=== PATIENT | male | born 1970 | race Hispanic/Latino ===

== ENCOUNTER 2018-11-15 12:03 | Inpatient (IN) | payer MEDICAID ==
[~2018-11-15] VITALS: Ht 175.3 cm; Wt 104.6 kg
[2018-11-15] MEDS ORDERED: NITROGLYCERIN 5 MG/ML 10 ML VIAL IV ONE (16:36)
[2018-11-15] MEDS ORDERED: IOHEXOL-350 75 ML VIAL IV ONE (16:36)
[2018-11-15] MEDS ORDERED: IOHEXOL-350 50ML VIAL IV ONE (16:36)
[2018-11-15] MEDS ORDERED: HEPARIN SODIUM 1000UNIT/ML 10ML VIAL ONE (16:36)
[2018-11-15] MEDS ORDERED: SODIUM BICARB 50MEQ 50ML VIAL ONE (16:36)
[2018-11-15] MEDS ORDERED: LIDOCAINE HCL 2% 20ML ONE (16:36)
[2018-11-15] MEDS ORDERED: ONDANSETRON HCL 4 MG/2 ML VIAL IVP PRN (17:15)
[2018-11-15] MEDS ORDERED: ALPRAZOLAM 1 MG TAB PO PRN (17:15)
[2018-11-15] MEDS ORDERED: ACETAMINOPHEN 325 MG TAB PO PRN (17:15)
[2018-11-15] MEDS ORDERED: DEXTROSE 50%-WATER 50 ML DISP.SYRIN IV PRN (17:15)
[2018-11-15] MEDS ORDERED: GLUCAGON 1MG KIT 1 MG ML IM PRN (17:15)
[2018-11-15] MEDS ORDERED: ZOLPIDEM TARTRATE 5 MG TAB PO PRN (17:30)
[2018-11-15 17:45] VITALS: BP 127/68
--- NOTE | 2018-11-15 17:57 | NUR ---
ARRIVAL TO FLOOR PT IS AAOX3 DENIES CP DENIES SOB DENIES NV AT THIS TIME, ARRIVED WITH ORDERS. PLAN R/LHC IN AM WITH DR HANSON. ISA KERN AWARE.
[2018-11-15] MEDS ORDERED: ASPI-1197 PO (18:08)
[2018-11-15] MEDS ORDERED: LEVO75TA4 PO (18:08)
[2018-11-15] MEDS ORDERED: METO100T14 PO (18:08)
[2018-11-15] MEDS ORDERED: ESOM40CA PO (18:08)
[2018-11-15] MEDS ORDERED: OXYC30TA89 PO (18:08)
[2018-11-15] MEDS ORDERED: METF-446 PO (18:08)
[2018-11-15] MEDS ORDERED: TORS20TA4 PO ×2 (18:08)
[2018-11-15] MEDS ORDERED: METO50TA18 PO (18:08)
[2018-11-15] MEDS: FUROSEMIDE 10 MG/ML 4ML VIAL IV SCH (18:12)
[2018-11-15] MEDS ORDERED: PHARMACY COMMUNICATION MISC SCH (18:15)
--- NOTE | 2018-11-15 18:15 | NUR ---
NUPUR BRONSON AWARE OF ADMISSION
--- NOTE | 2018-11-15 18:26 | NUR ---
REGARDING SCHEDULED OXYCODONE STATES HE WANTS TO TAKE IT LATER TONIGHT
[2018-11-15] MEDS: OXYCODONE HCL 30 MG TABLET PO SCH (19:00)
--- NOTE | 2018-11-15 19:30 | NUR ---
REFUSED OXYCODONE DOSE SCHEDULED.
--- NOTE | 2018-11-15 19:55 | NUR ---
STATES HE FEELS SHORT OF BREATH AND FEELS LIKE HE NEEDS A BIT MORE OXYGEN. INCRERASED O2 TO 3L NC AND WILL CONTINUE TO MONITOR. APPEARS COMFORTABLE. O2 SAT 97%.
[2018-11-15 20:00] VITALS: BP 139/69
[2018-11-15] MEDS ORDERED: ATORVASTATIN CALCIUM 40 MG TABLET PO SCH (21:00)
[2018-11-15] MEDS: INSULIN HUMULIN R 100 UNIT/ML 3ML SQ SCH (21:00)
[2018-11-16] VITALS (7 sets, daily range): BP systolic 110–140; BP diastolic 58–69
[2018-11-16] MEDS: FUROSEMIDE 10 MG/ML 4ML VIAL IV SCH ×2 (01:28→18:03)
--- NOTE | 2018-11-16 01:32 | NUR ---
DRY HEAVING NOTED. OFFERED ZOFRAN--REFUSED --STATES MEDICATION DOES NOT WORK. WILL CONTINUE TO MONITOR.
[2018-11-16] MEDS: OXYCODONE HCL 30 MG TABLET PO SCH ×3 (02:15→18:15)
[2018-11-16 03:43] LABS: HEMATOCRIT 35.5 % (42-54); MEAN CORPUSCULAR HEMOGLOBIN 21.9 pg (27.0-33.0); MEAN CORPUSCULAR HGB CONC 30.8 g/dL (32.0-36.0); NUCLEATED RED BLOOD CELLS 0.8 % (0.0-0.19); PLATELET COUNT (AUTO) 662 K/uL (130-400); RED CELL DISTRIBUTION WIDTH 20.4 % (11.0-15.5); WHITE BLOOD COUNT (AUTO) 12.9 K/uL (4.8-10.8)
[2018-11-16 03:58] LABS: B-TYPE NATRIURETIC PEPTIDE 985 pg/mL (0-100)
[2018-11-16 04:03] LABS: ALBUMIN 3.6 g/dL (3.5-5.0); BILIRUBIN,TOTAL 1.8 mg/dL (0.2-1.0); CREATININE 1.7 mg/dL (0.5-1.5); POTASSIUM 3.7 mmol/L (3.5-5.1); THYROID STIMULATING HORMONE 7.64 uIU/mL (0.36-3.74)
[2018-11-16] MEDS: LEVOTHYROXINE 75 MCG TABLET PO SCH (06:02)
[2018-11-16] MEDS: INSULIN HUMULIN R 100 UNIT/ML 3ML SQ SCH ×4 (06:16→21:00)
--- NOTE | 2018-11-16 08:00 | NUR ---
ASSESSMENT ENCOUNTERED PT SITTING UP ON SIDE OF BED, A&OX3, CALM COOPERATIVE AND DOES NOT APPEAR TO BE IN ANY DISTRESS NOR ANY NEURO DEFICITS PRESENT. PT DOES STATE THAT HE HAS INTERMITTENT EPISODES OF LIGHTHEADEDNESS AND SOB. TELE MONITOR CONTINUES TO DISPLAY NSR WITH NO EPISODES OF ARRHYTHMIAS, ECTOPY NOR BRADYCARDIA. PT IS NPO FOR PENDING C BY DR ASTUDILLO, CALL LIGHT WITHIN REACH.
[2018-11-16 08:40] LABS: % IRON SATURATION 2.8 % (30-44)
[2018-11-16] MEDS ORDERED: FUROSEMIDE 10 MG/ML 4ML VIAL IV SCH (09:00)
[2018-11-16] MEDS: PANTOPRAZOLE SODIUM 40 MG TABLET.DR PO SCH (09:00)
[2018-11-16] MEDS: ENOXAPARIN SODIUM 40 MG/0.4 ML SYRINGE SQ SCH (09:00)
[2018-11-16] MEDS: ASPIRIN 81MG TAB.CHEW PO SCH (09:00)
[2018-11-16] MEDS: METOPROLOL TARTRATE 50 MG TAB PO SCH ×2 (10:17→20:25)
--- NOTE | 2018-11-16 11:16 | NUR ---
DC PLAN VISITED WITH PATIENT. PATIENT LIVES WITH SPOUSE. INDEPENDENT ABLE TO PERFORM ADL'S. PATIENT HAS NO SERVICES OR DME'S. FEELS SAFE TO RETURN HOME. SAYS WILL BE STAYING WITH BROTHER ON DISCHARGE MORE THAN LIKELY. SOMETIMES USES A CANE. PATIENT IS A [employer] TRANSFER. Addendum: 11/16/18 at 1117 by STEPHANIE CANNON RN CM Amended: Links added.
[2018-11-16] MEDS ORDERED: BIVALIRUDIN 250 MG/VIAL IV ONE (13:15)
[2018-11-16] MEDS ORDERED: IOHEXOL-350 50ML VIAL IV ONE (13:15)
[2018-11-16] MEDS ORDERED: MIDAZOLAM HCL 1 MG/ML 2ML VIAL ONE (13:15)
[2018-11-16] MEDS ORDERED: LIDOCAINE HCL 1% 20 ML VIAL ONE (13:15)
[2018-11-16] MEDS ORDERED: NITROGLYCERIN 5 MG/ML 10 ML VIAL IV ONE (13:15)
[2018-11-16] MEDS ORDERED: IOHEXOL 350 MG/ML 100ML INFUS..BTL IV ONE (13:15)
[2018-11-16] MEDS ORDERED: FENTANYL CITRATE PF 50 MCG/1 ML 2ML VIAL ONE (13:46)
--- NOTE | 2018-11-16 14:00 | NUR ---
LEFT HEART CATH CANCELLED PT BECAME ANXIOUS, RESTLESS AND UNABLE TO LAY FLAT. PT RETURNED TO FLOOR. ASLEEP BUT AROUSEABLE, A&OX4. CALM COOPERATIVE AND DOES NOT APPEAR TO BE IN ANY DISTRESS NOR ANY NEURO DEFICITS PRESENT. CALL LIGHT WITHIN REACH.
[2018-11-16] MEDS: ATORVASTATIN CALCIUM 40 MG TABLET PO SCH (20:25)
[2018-11-16] MEDS: FERROUS SULFATE 325 MG TABLET.DR PO SCH (20:26)
[2018-11-17] VITALS (8 sets, daily range): BP systolic 117–140; BP diastolic 58–76
[2018-11-17] MEDS: OXYCODONE HCL 30 MG TABLET PO SCH ×3 (02:15→18:15)
[2018-11-17 04:17] LABS: HEMATOCRIT 33.2 % (42-54); MEAN CORPUSCULAR HEMOGLOBIN 22.7 pg (27.0-33.0); MEAN CORPUSCULAR HGB CONC 31.9 g/dL (32.0-36.0); MEAN CORPUSCULAR VOLUME 71.2 fL (79-99); PLATELET COUNT (AUTO) 630 K/uL (130-400); RED BLOOD CELL COUNT(AUTO) 4.67 MIL/uL (4.50-6.20); RED CELL DISTRIBUTION WIDTH 19.8 % (11.0-15.5); WHITE BLOOD COUNT (AUTO) 12.6 K/uL (4.8-10.8)
[2018-11-17 04:26] LABS: INR 1.24 (0.85-1.15); PARTIAL THROMBOPLASTIN TIME 25.2 SEC (26.3-35.5)
[2018-11-17 04:29] LABS: ALBUMIN 3.4 g/dL (3.5-5.0); BILIRUBIN,TOTAL 1.8 mg/dL (0.2-1.0); CREATININE 1.8 mg/dL (0.5-1.5); POTASSIUM 3.5 mmol/L (3.5-5.1); TOTAL PROTEIN, SERUM 7.7 g/dL (6.0-8.3)
[2018-11-17] MEDS: FUROSEMIDE 10 MG/ML 4ML VIAL IV SCH ×2 (05:55→17:51)
[2018-11-17] MEDS: LEVOTHYROXINE 75 MCG TABLET PO SCH (05:55)
[2018-11-17] MEDS: INSULIN HUMULIN R 100 UNIT/ML 3ML SQ SCH ×4 (06:25→21:00)
--- NOTE | 2018-11-17 07:50 | NUR ---
ASSESSMENT ENCOUNTERED PT IN SEMI JASMINE'S POSITION, A&OX3, CALM COOPERATIVE AND DOES NOT APPEAR TO BE IN ANY DISTRESS NOR ANY NEURO DEFICITS PRESENT. PT DENIES PAIN, SOB, DIZZINESS OR NAUSEA. PT STATES HE FEELS BETTER TODAY THAN YESTERDAY. PT IS ABLE TO TOLERATE STANDING SCALE WEIGHT AND AMBULATION TO SHOWER IN SHOWER BENCH AND BACK TO BED, TOLERATING WELL. CALL LIGHT WITHIN REACH.
[2018-11-17] MEDS: PANTOPRAZOLE SODIUM 40 MG TABLET.DR PO SCH (09:51)
[2018-11-17] MEDS: FERROUS SULFATE 325 MG TABLET.DR PO SCH ×2 (09:51→21:33)
[2018-11-17] MEDS: METOPROLOL TARTRATE 50 MG TAB PO SCH ×2 (09:51→21:35)
[2018-11-17] MEDS: ASPIRIN 81MG TAB.CHEW PO SCH (09:51)
[2018-11-17] MEDS: ENOXAPARIN SODIUM 40 MG/0.4 ML SYRINGE SQ SCH (09:52)
--- NOTE | 2018-11-17 13:54 | NUR ---
DC PLAN PATIENT CATH ON HOLD DUE TO NOT ABLE TO LAY FLAT WITH OUT SOB. Addendum: 11/17/18 at 1355 by STEPHANIE CANNON RN CM Amended: Links added.
[2018-11-17] MEDS: ATORVASTATIN CALCIUM 40 MG TABLET PO SCH (21:35)
[2018-11-18] VITALS (19 sets, daily range): BP systolic 105–154; BP diastolic 58–88
[2018-11-18] MEDS: OXYCODONE HCL 30 MG TABLET PO SCH ×3 (02:15→18:15)
[2018-11-18 04:34] LABS: CREATININE 1.6 mg/dL (0.5-1.5); POTASSIUM 3.3 mmol/L (3.5-5.1)
[2018-11-18] MEDS: LEVOTHYROXINE 75 MCG TABLET PO SCH (06:11)
[2018-11-18] MEDS: FUROSEMIDE 10 MG/ML 4ML VIAL IV SCH ×2 (06:11→18:00)
[2018-11-18] MEDS: POTASSIUM CHLORIDE 20 MEQ ERTAB PO PRN (06:12)
[2018-11-18] MEDS: INSULIN HUMULIN R 100 UNIT/ML 3ML SQ SCH ×4 (06:12→21:00)
[2018-11-18] MEDS: ASPIRIN 81MG TAB.CHEW PO SCH (09:00)
[2018-11-18] MEDS: ENOXAPARIN SODIUM 40 MG/0.4 ML SYRINGE SQ SCH (09:00)
[2018-11-18] MEDS: FERROUS SULFATE 325 MG TABLET.DR PO SCH (09:00)
[2018-11-18] MEDS: METOPROLOL TARTRATE 50 MG TAB PO SCH ×2 (09:00→21:52)
[2018-11-18] MEDS: PANTOPRAZOLE SODIUM 40 MG TABLET.DR PO SCH (09:00)
[2018-11-18] MEDS ORDERED: IOHEXOL-350 50ML VIAL IV ONE (15:29)
[2018-11-18] MEDS ORDERED: LIDOCAINE HCL 2% 20ML ONE ×2 (15:29→16:01)
[2018-11-18] MEDS ORDERED: NITROGLYCERIN 5 MG/ML 10 ML VIAL IV ONE (15:29)
[2018-11-18] MEDS ORDERED: IOHEXOL-350 75 ML VIAL IV ONE (15:29)
[2018-11-18] MEDS ORDERED: MIDAZOLAM HCL 1 MG/ML 2ML VIAL ONE (15:56)
[2018-11-18] MEDS ORDERED: NITROGLYCERIN 50 MG/D5% WATER 1 BOT ONE (16:34)
[2018-11-18] MEDS ORDERED: FUROSEMIDE 10 MG/ML 4ML VIAL ONE (16:55)
[2018-11-18] MEDS ORDERED: NITROGLYCERIN 50 MG/D5% WATER 250 BOT IV PRN (17:30)
[2018-11-18] MEDS ORDERED: PHARMACY COMMUNICATION MISC SCH (17:30)
[2018-11-18] MEDS: ATORVASTATIN CALCIUM 40 MG TABLET PO SCH (21:52)
[2018-11-19] VITALS (17 sets, daily range): BP systolic 92–155; BP diastolic 40–74
[2018-11-19] MEDS: OXYCODONE HCL 30 MG TABLET PO SCH (02:15)
[2018-11-19 05:49] LABS: HEMATOCRIT 34.3 % (42-54); MEAN CORPUSCULAR HGB CONC 30.9 g/dL (32.0-36.0); MEAN CORPUSCULAR VOLUME 71.3 fL (79-99); NUCLEATED RED BLOOD CELLS 3.5 % (0.0-0.19); PLATELET COUNT (AUTO) 581 K/uL (130-400); WHITE BLOOD COUNT (AUTO) 10.4 K/uL (4.8-10.8)
[2018-11-19 06:01] LABS: CREATININE 1.5 mg/dL (0.5-1.5); POTASSIUM 3.1 mmol/L (3.5-5.1)
[2018-11-19] MEDS: LEVOTHYROXINE 75 MCG TABLET PO SCH (06:10)
[2018-11-19] MEDS: FUROSEMIDE 10 MG/ML 4ML VIAL IV SCH ×2 (06:10→17:43)
[2018-11-19] MEDS: INSULIN HUMULIN R 100 UNIT/ML 3ML SQ SCH ×4 (06:12→20:25)
[2018-11-19] MEDS: POTASSIUM CHLORIDE 20 MEQ ERTAB PO PRN ×2 (06:12→17:45)
--- NOTE | 2018-11-19 10:59 | NUR ---
DR LYNCH IN TO SEE PATIENT
[2018-11-19] MEDS: ENOXAPARIN SODIUM 40 MG/0.4 ML SYRINGE SQ SCH (11:09)
[2018-11-19] MEDS: METOPROLOL TARTRATE 50 MG TAB PO SCH ×2 (11:09→20:20)
[2018-11-19] MEDS: ASPIRIN 81MG TAB.CHEW PO SCH (11:10)
[2018-11-19] MEDS: PANTOPRAZOLE SODIUM 40 MG TABLET.DR PO SCH (11:10)
[2018-11-19] MEDS: ISOSORBIDE MONO 30MG TAB SR PO SCH (12:10)
--- NOTE | 2018-11-19 14:49 | NUR ---
cm note chart reviewed, expected long lengthof stay. CM to follow for aftercare needs Addendum: 11/19/18 at 1451 by BROOKS HELLER RN CM Amended: Links added.
--- NOTE | 2018-11-19 17:31 | NUR ---
SUMMARY- DR MONTANEZ AND DR LYNCH HAVE SEEN PATIENT TODAY AND SPOKE TO HIM ABOUT POTENTIAL AORTIC VALVE REPLACEMENT. DR MONTANEZ AND DR LYNCH SPOKE TO EACH OTHER AT THE NURSES STATION TODAY. DR LYNCH TOLD ME HE WOULD BE TALKING TO DR MONTIEL ABOUT THIS CASE AND TO PUT PT ON DR MONTIEL LIST. NO PRE-OP ORDERS WERE GIVEN. OTHERWISE PT IS STABLE AND HAS NO ACUTE SOB. HE DOES GET SOB WITH EXERTION. I LET HIM SHOWER TODAY AND HAVE TURNED NG IV OFF. NEW IV SITE ESTABLISHED TO LEFT WRIST. PT CURRENTLY ON ROOM AIR AND SATURATING 98%. PT STABLE. HAD 1 BM TODAY Addendum: 11/20/18 at 1327 by TAVIA ELKINS RN RN PT WAS INFORMED THAT HIS LIVER ENZYMES WHERE ELEVATED FOUND BY DR Jonas MONTANEZ. HAS REQUESTED HIV/HEPATITIS SCREENING AND THAT IT WOULD BE DRAWN IN THE MORNING. HE SAID YES AND DECLARED THAT HE HAS BEEN NEGATIVE IN THE PAST.
--- NOTE | 2018-11-19 19:18 | NUR ---
HAND OFF REPORT GIVEN TO LONG VALLEJO
--- NOTE | 2018-11-19 19:50 | NUR ---
REPORT GIVEN TO YONI KEITH. PATIENT TRANSFERRED TO ROOM 226.
--- NOTE | 2018-11-19 20:00 | NUR ---
PT TRANSFERRED TO [facility]. REPORT RECEIVED FROM LONG VALLEJO. PT STABLE. NO DISTRESS NOTED.
[2018-11-19] MEDS: ATORVASTATIN CALCIUM 40 MG TABLET PO SCH (20:20)
[2018-11-19] MEDS: OXYCODONE HCL 30 MG TABLET PO PRN (23:48)
--- NOTE | 2018-11-20 02:28 | NUR ---
PT HAD EMESIS EPISODE. STATED HAVING AN UPSET STOMACH AND SOME NAUSEA. ZOFRAN PRN GIVEN. STATES PAIN MEDICATION MIGHT HAVE CAUSED EPISODE.
[2018-11-20 03:50] LABS: BASOPHILS % (AUTO) 1.3 % (0.0-5.0); EOSINOPHILS % (AUTO) 1.5 % (0.0-8.0); HEMATOCRIT 35.2 % (42-54); LYMPHOCYTES % (AUTO) 39.6 % (21.0-51.0); MEAN CORPUSCULAR HGB CONC 30.9 g/dL (32.0-36.0); MEAN CORPUSCULAR VOLUME 71.1 fL (79-99); MONOCYTES % (AUTO) 7.9 % (3.0-13.0); NEUTROPHILS % (AUTO) 49.7 % (40.0-77.0); NUCLEATED RED BLOOD CELLS 3.4 % (0.0-0.19); PLATELET COUNT (AUTO) 617 K/uL (130-400); RED BLOOD CELL COUNT(AUTO) 4.95 MIL/uL (4.50-6.20); RED CELL DISTRIBUTION WIDTH 20.1 % (11.0-15.5); WHITE BLOOD COUNT (AUTO) 11.3 K/uL (4.8-10.8)
[2018-11-20 04:10] VITALS: BP 143/64
[2018-11-20 04:32] LABS: ALBUMIN 3.3 g/dL (3.5-5.0); BILIRUBIN,TOTAL 1.4 mg/dL (0.2-1.0); CREATININE 1.5 mg/dL (0.5-1.5); POTASSIUM 3.3 mmol/L (3.5-5.1); TOTAL PROTEIN, SERUM 7.6 g/dL (6.0-8.3)
--- NOTE | 2018-11-20 04:35 | NUR ---
NOTIFIED PRELIMINARY LABS OF HIV 1&2 POSITIVE
[2018-11-20] MEDS: INSULIN HUMULIN R 100 UNIT/ML 3ML SQ SCH ×4 (05:49→21:00)
[2018-11-20] MEDS: FUROSEMIDE 10 MG/ML 4ML VIAL IV SCH (06:11)
[2018-11-20] MEDS: POTASSIUM CHLORIDE 20 MEQ ERTAB PO PRN ×3 (06:12→13:22)
[2018-11-20] MEDS: LEVOTHYROXINE 75 MCG TABLET PO SCH (06:12)
[2018-11-20 07:00] VITALS: BP 144/76
[2018-11-20] MEDS: ASPIRIN 81MG TAB.CHEW PO SCH (09:54)
[2018-11-20] MEDS: PANTOPRAZOLE SODIUM 40 MG TABLET.DR PO SCH (09:54)
[2018-11-20] MEDS: METOPROLOL TARTRATE 50 MG TAB PO SCH ×2 (09:54→21:29)
[2018-11-20] MEDS: ISOSORBIDE MONO 30MG TAB SR PO SCH (09:54)
[2018-11-20] MEDS: ENOXAPARIN SODIUM 40 MG/0.4 ML SYRINGE SQ SCH (09:55)
[2018-11-20] MEDS ORDERED: COMPOUND IV MISC 1 EACH IVSOLN MISC PRN (10:45)
[2018-11-20 11:30] VITALS: BP 122/68
[2018-11-20] MEDS: IRON SUCROSE COMPLEX 100 MG in SODIUM CHLORIDE 0.9% 50 ML IV SCH (12:00)
[2018-11-20] MEDS: LACTULOSE 20 GM/30 ML UDCUP PO PRN (13:21)
[2018-11-20 15:30] VITALS: BP 128/59
[2018-11-20 18:10] LABS: AMPHET/METH SCREEN,URINE NEGATIVE (NEGATIVE); BARBITURATE SCREEN, URINE NEGATIVE (NEGATIVE); BENZODIAZEPINES SCREEN,URINE POSITIVE (NEGATIVE); CANNABINOID SCREEN,URINE NEGATIVE (NEGATIVE); COCAINE SCREEN,URINE NEGATIVE (NEGATIVE); OPIATE SCREEN,URINE NEGATIVE (NEGATIVE); PHENCYCLIDINE SCREEN,URINE NEGATIVE (NEGATIVE)
[2018-11-20 20:06] VITALS: BP 124/68
[2018-11-20] MEDS: ATORVASTATIN CALCIUM 40 MG TABLET PO SCH (21:29)
[2018-11-21] VITALS (7 sets, daily range): BP systolic 109–128; BP diastolic 57–90
[2018-11-21] MEDS: LEVOTHYROXINE 75 MCG TABLET PO SCH (05:56)
[2018-11-21] MEDS: INSULIN HUMULIN R 100 UNIT/ML 3ML SQ SCH ×4 (06:17→21:00)
--- NOTE | 2018-11-21 08:12 | NUR ---
DR. Felipa CRUZ IN ROOM SPEAKING WITH PT. RE:PLAN OF CARE. QUESTIONS ANSWERED BY DR. CRUZ.
[2018-11-21] MEDS ORDERED: FUROSEMIDE 40 MG TABLET PO SCH (09:00)
[2018-11-21] MEDS: ISOSORBIDE MONO 30MG TAB SR PO SCH (09:02)
[2018-11-21] MEDS: PANTOPRAZOLE SODIUM 40 MG TABLET.DR PO SCH (09:02)
[2018-11-21] MEDS: ASPIRIN 81MG TAB.CHEW PO SCH (09:02)
[2018-11-21] MEDS: METOPROLOL TARTRATE 50 MG TAB PO SCH ×2 (09:03→21:06)
[2018-11-21] MEDS: ENOXAPARIN SODIUM 40 MG/0.4 ML SYRINGE SQ SCH (09:04)
[2018-11-21] MEDS: IRON SUCROSE COMPLEX 100 MG in SODIUM CHLORIDE 0.9% 50 ML IV SCH (09:04)
--- NOTE | 2018-11-21 13:05 | NUR ---
DR. Jonas GONZALES IN ROOM SPEAKING WITH PT. RE:LAB FINDINGS (PRELIMINARY HIV +) AND PLAN OF CARE. QUESTIONS ANSWERED BY DR. GONZALES.
--- NOTE | 2018-11-21 16:10 | NUR ---
RDSCREEN - LOS X 6 DAYS Pt admitted for aortic stenosis, CHF. Pt pending possible AVR as per EMR. Pt tolerating 90gm CCD with no report of GI distress and good PO intake at 100%. Pt LBM 11/19/18. Pt monitored labs: Glu 156, K 3.3, Cl 99, BUN 27, GFR 54, Ca 8.3, T. Bili 1.4, AST 178, ALT 236, ALk 246, Alb 3.3. Pt Obesity Class I (BMI 34.1). RD to continue to monitor. Please notify RD as nutritional concerns arise. Thank you. Addendum: 11/21/18 at [address] RD Amended: Links added.
[2018-11-21] MEDS: OXYCODONE HCL 30 MG TABLET PO PRN (21:05)
[2018-11-21] MEDS: ATORVASTATIN CALCIUM 40 MG TABLET PO SCH (21:06)
[2018-11-21] MEDS: LACTULOSE 20 GM/30 ML UDCUP PO PRN (23:41)
[2018-11-22 03:00] VITALS: BP 126/70
[2018-11-22 04:16] LABS: CORRECTED WHITE BLOOD COUNT 12.1 K/uL (4.5-11.0); EOSINOPHILS % (AUTO) 3.1 % (0.0-8.0); HEMATOCRIT 33.4 % (42-54); LYMPHOCYTES % (AUTO) 30.4 % (21.0-51.0); MEAN CORPUSCULAR HEMOGLOBIN 21.9 pg (27.0-33.0); MEAN CORPUSCULAR HGB CONC 30.7 g/dL (32.0-36.0); MEAN CORPUSCULAR VOLUME 71.4 fL (79-99); MONOCYTES % (AUTO) 8.6 % (3.0-13.0); NEUTROPHILS % (AUTO) 56.9 % (40.0-77.0); NUCLEATED RED BLOOD CELLS 6.7 % (0.0-0.19); PLATELET COUNT (AUTO) 590 K/uL (130-400); RED BLOOD CELL COUNT(AUTO) 4.68 MIL/uL (4.50-6.20); RED CELL DISTRIBUTION WIDTH 20.2 % (11.0-15.5); WHITE BLOOD COUNT (AUTO) 12.9 K/uL (4.8-10.8)
[2018-11-22 04:22] LABS: CREATININE 1.5 mg/dL (0.5-1.5); MAGNESIUM 2.1 mg/dL (1.80-2.40); POTASSIUM 3.6 mmol/L (3.5-5.1)
[2018-11-22] MEDS: INSULIN HUMULIN R 100 UNIT/ML 3ML SQ SCH ×2 (06:08→11:30)
[2018-11-22] MEDS: LEVOTHYROXINE 75 MCG TABLET PO SCH (06:08)
[2018-11-22 06:10] LABS: HEPATITIS A ANTIBODY IGM Negative (Negative); HEPATITIS Bs ANTIGEN SCREEN P Negative (Negative)
[2018-11-22 07:52] VITALS: BP 117/67
[2018-11-22] MEDS ORDERED: FUROSEMIDE 10 MG/ML 10ML VIAL IVP SCH (08:15)
[2018-11-22] MEDS: ENOXAPARIN SODIUM 40 MG/0.4 ML SYRINGE SQ SCH (09:18)
[2018-11-22] MEDS: ASPIRIN 81MG TAB.CHEW PO SCH (09:18)
[2018-11-22] MEDS: PANTOPRAZOLE SODIUM 40 MG TABLET.DR PO SCH (09:19)
[2018-11-22] MEDS: ISOSORBIDE MONO 30MG TAB SR PO SCH (09:19)
[2018-11-22] MEDS: METOPROLOL TARTRATE 50 MG TAB PO SCH (09:19)
[2018-11-22] MEDS: LACTULOSE 20 GM/30 ML UDCUP PO PRN (09:23)
[2018-11-22] MEDS: IRON SUCROSE COMPLEX 100 MG in SODIUM CHLORIDE 0.9% 50 ML IV SCH (09:23)
[2018-11-22] MEDS ORDERED: FURO40TA7 PO (10:50)
[2018-11-22] MEDS ORDERED: METO50 PO (10:50)
[2018-11-22] MEDS ORDERED: POTA20TA82 PO (10:50)
[2018-11-22] MEDS ORDERED: ATOR40TA69 PO (10:50)
[2018-11-22 12:03] VITALS: BP 116/64
--- NOTE | 2018-11-22 16:07 | NUR ---
Patient discharged in stable condition. IV removed from Left Wrist. pt tolerated well. Patient given discharge instructions on 1500 fluid restriction, 2gm sodium diet and monitoring. If chest pain, SOB, changes in mental status, irregular heart beat, fainting episode, severe pain or n/v come back to ER. Patient given instructed on f/u appts with Dr. Ayala, Dr. Pond and his PCP Dr. Garcia in [place], [place]. Pt verbalized understanding to all appt and discharge teachings.
[2018-11-22] MEDS ORDERED: FUROSEMIDE 40 MG TABLET PO SCH (21:00)
== END 2018-11-22 16:34 | disposition home or self-care (01) | DRG 192 ==
LOC: 2AH 16:29 → 2BH 11-18 17:56 → 2DH 11-19 19:59
PROVIDERS: ADMIT Internal Medicine Pulmonary Disease; ATTEND Internal Medicine Pulmonary Disease
PROC: 4A023N8 Measurement of Cardiac Sampling and Pressure, Bilateral, Percutaneous Approach (ICD-10-PCS; principal; 2018-11-18)
PROC: B2111ZZ Fluoroscopy of Multiple Coronary Arteries using Low Osmolar Contrast (ICD-10-PCS; 2018-11-18)
PROC: B2181ZZ Fluoroscopy of Left Internal Mammary Bypass Graft using Low Osmolar Contrast (ICD-10-PCS; 2018-11-18)
PROC: B2131ZZ Fluoroscopy of Multiple Coronary Artery Bypass Grafts using Low Osmolar Contrast (ICD-10-PCS; 2018-11-18)
PROC: B41F1ZZ Fluoroscopy of Right Lower Extremity Arteries using Low Osmolar Contrast (ICD-10-PCS; 2018-11-18)
PROC: B3101ZZ Fluoroscopy of Thoracic Aorta using Low Osmolar Contrast (ICD-10-PCS; 2018-11-18)
DX: I13.0 Hypertensive heart and chronic kidney disease with heart failure and stage 1 through stage 4 chronic kidney disease, or unspecified chronic kidney disease (principal); I44.2 Atrioventricular block, complete; E11.22 Type 2 diabetes mellitus with diabetic chronic kidney disease; N17.9 Acute kidney failure, unspecified; N18.3 Chronic kidney disease, stage 3 (moderate); I25.82 Chronic total occlusion of coronary artery; K76.1 Chronic passive congestion of liver; F20.9 Schizophrenia, unspecified; D50.9 Iron deficiency anemia, unspecified; F17.210 Nicotine dependence, cigarettes, uncomplicated; I08.0 Rheumatic disorders of both mitral and aortic valves; I25.10 Atherosclerotic heart disease of native coronary artery without angina pectoris; I50.43 Acute on chronic combined systolic (congestive) and diastolic (congestive) heart failure; I42.0 Dilated cardiomyopathy; E03.9 Hypothyroidism, unspecified; E78.00 Pure hypercholesterolemia, unspecified; G47.33 Obstructive sleep apnea (adult) (pediatric); I45.2 Bifascicular block; R09.02 Hypoxemia; I45.10 Unspecified right bundle-branch block; E66.9 Obesity, unspecified; E78.5 Hyperlipidemia, unspecified; K21.9 Gastro-esophageal reflux disease without esophagitis; G89.4 Chronic pain syndrome; I25.5 Ischemic cardiomyopathy; R56.9 Unspecified convulsions; Y84.2 Radiological procedure and radiotherapy as the cause of abnormal reaction of the patient, or of later complication, without mention of misadventure at the time of the procedure; Z53.9 Procedure and treatment not carried out, unspecified reason; Z68.34 Body mass index [BMI] 34.0-34.9, adult; Z79.82 Long term (current) use of aspirin; Z79.899 Other long term (current) drug therapy; Z85.71 Personal history of Hodgkin lymphoma; Z91.19 Patient's noncompliance with other medical treatment and regimen; Z95.1 Presence of aortocoronary bypass graft; Z95.2 Presence of prosthetic heart valve
CPT/HCPCS: 36415; 71045; 78580; 80048; 80053; 80305; 82948; 83540; 83550; 83735; 83880; 84436; 84443; 84479; 85025; 85027; 85610; 85730; 86359; 86361; 86701; 86704; 86706; 86708; 86709; 87340; 87390; 87520; 87536; 87900; 87901; 93461; 93567; 93880; 99156; 99157; A9540; C1760; C1769; C1893; C1894; G0378; J0583; J1644; J1650; J1756; J1940; J2250; J2405; J3010; J3490; Q9967

== ENCOUNTER → 2019-03-15 | Outpatient (CLI) | payer MEDICAID ==
[~2019-03-15] VITALS: Ht 175.3 cm; Wt 97.2 kg
[~2019-03-15] MED LIST: ASPI-1197 PO; ATOR40TA69 PO; CEFUROXIME SODIUM 1.5 GM VIAL IVP SCH; ESOM40CA PO; FURO40TA7 PO; INSU300I SQ; LEVO75TA4 PO; METF-446 PO; METO-409 PO; METO2.5T2 PO; METO50 PO; OXYC30TA89 PO; POTA-79 PO; POTA20TA82 PO; SPIROLACTONE PO; TORS20TA4 PO
[2019-03-15 13:15] LABS: BASOPHILS % (AUTO) 1.1 % (0.0-5.0); EOSINOPHILS % (AUTO) 2.8 % (0.0-8.0); HEMATOCRIT 40.6 % (42-54); LYMPHOCYTES % (AUTO) 34.6 % (21.0-51.0); MEAN CORPUSCULAR HEMOGLOBIN 24.3 pg (27.0-33.0); MEAN CORPUSCULAR HGB CONC 32.1 g/dL (32.0-36.0); MEAN CORPUSCULAR VOLUME 75.7 fL (79-99); MONOCYTES % (AUTO) 6.2 % (3.0-13.0); NEUTROPHILS % (AUTO) 55.3 % (40.0-77.0); NUCLEATED RED BLOOD CELLS 0.1 % (0.0-0.19); PLATELET COUNT (AUTO) 626 K/uL (130-400); RED BLOOD CELL COUNT(AUTO) 5.36 MIL/uL (4.50-6.20); RED CELL DISTRIBUTION WIDTH 24.1 % (11.0-15.5); WHITE BLOOD COUNT (AUTO) 13.3 K/uL (4.8-10.8)
[2019-03-15 13:26] VITALS: BP 134/57
[2019-03-15 13:52] LABS: HEMOGLOBIN A1C 9.3 % (4.0-6.0)
[2019-03-15 14:10] LABS: APPEARANCE,URINE Clear (CLEAR); BILIRUBIN,URINE Negative (NEGATIVE); COLOR,URINE Yellow (YELLOW); GLUCOSE, URINE (UA) Negative (NEGATIVE); KETONES,URINE Negative (NEGATIVE); LEUKOCYTE ESTERASE ,URINE Negative (NEGATIVE); NITRATE,URINE Negative (NEGATIVE); OCCULT BLOOD,URINE Negative (NEGATIVE); PH,URINE 6.5 (5.0-8.0); PROTEIN,URINE Negative (NEGATIVE); UROBILINOGEN,URINE 0.2 mg/dL (0.2-1.0)
[2019-03-15 14:23] LABS: INR 0.99 (0.85-1.15); PROTHROMBIN TIME 10.4 SEC (9.6-11.6)
[2019-03-15 14:42] LABS: PARTIAL THROMBOPLASTIN TIME 25.2 SEC (26.3-35.5)
[2019-03-15 17:10] LABS: ALBUMIN 3.6 g/dL (3.5-5.0); BILIRUBIN,TOTAL 0.7 mg/dL (0.2-1.0); CREATININE 1.6 mg/dL (0.5-1.5); POTASSIUM 3.2 mmol/L (3.5-5.1); TOTAL PROTEIN, SERUM 8.2 g/dL (6.0-8.3)
--- NOTE | 2019-03-15 17:59 | NUR ---
ABNORMAL LABS ABNORMAL LABS REPORTED TO DR. TIANA KIRKPATRICK NURSE; POTASSIUM 3.2, CREAT 1.6, ALK PHOS 166, WBC 13.3, H/H 13.0/40.6, PLATELETS 626, HBA1C 9.3. NO FURTHER ORDERS GIVEN, MAY PROCEED WITH PLANNED PROCEDURE.
== END | disposition home or self-care (01) ==
LOC: EDSTATUS 03-14 10:00 → DAH 10:00 → EDSTATUS 03-20 10:00
PROVIDERS: ATTEND Thoracic Surgery (Cardiothoracic Vascular Surgery)
DX: I35.1 Nonrheumatic aortic (valve) insufficiency (principal); Z01.818 Encounter for other preprocedural examination
CPT/HCPCS: 36415; 71046; 80053; 81003; 83036; 85025; 85610; 85730; 86850; 86900; 86901; 94010